=== PATIENT | male | born 1960 | race Two or more races ===

== ENCOUNTER 2023-01-26 15:07 | Emergency (ER) | payer SELFPAY ==
[~2023-01-26] VITALS: Ht 162.6 cm; Wt 74.0 kg
[2023-01-26 15:08] VITALS: TEMP 97.9
[2023-01-26] MEDS ORDERED: RAMI1CAP21 PO (15:26)
[2023-01-26] MEDS ORDERED: NITR2.5C10 PO (15:26)
[2023-01-26] MEDS ORDERED: CLOP75TA99 PO ×3 (15:26→19:51)
[2023-01-26] MEDS ORDERED: MONT10TA97 PO (15:26)
[2023-01-26] MEDS ORDERED: ROSU20TA61 PO ×2 (15:26→19:56)
[2023-01-26] MEDS ORDERED: BISO5TAB14 PO ×2 (15:26→19:50)
[2023-01-26] MEDS ORDERED: ASPIRIN 81MG CHEW TABLET PO ONE (16:10)
[2023-01-26] MEDS: NITROGLYCERIN 0.4MG SUBL TABLET SL PRN ×2 (16:17→16:31)
[2023-01-26 16:31] VITALS: BP 127/79
[2023-01-26 16:41] LABS: BASO # 0.1 10^3/uL (0.0-0.2); BASO % 0.7 % (0.0-1.0); EOS # 0.3 10^3/uL (0.0-0.5); EOS % 3.8 % (0.0-3.0); HEMATOCRIT 43.1 % (42.0-52.0); HEMOGLOBIN 13.9 g/dl (13.5-17.5); LYMPH # 2.5 10^3/uL (1.5-5.0); MEAN CORPUSCULAR HEMOGLOBIN 29.1 pg (27.0-33.0); MEAN CORPUSCULAR HGB CONC 32.3 g/dl (32.0-36.5); MEAN CORPUSCULAR VOLUME 90.4 fl (80.0-96.0); MONO # 0.6 10^3/uL (0.0-0.8); MONO % 7.9 % (2.0-8.0); NEUTROPHILS # 4.1 10^3/uL (1.5-8.5); NEUTROPHILS % 54.3 % (36.0-66.0); PLATELET COUNT, AUTOMATED 104 10^3/uL (150-450); RED BLOOD COUNT 4.77 10^6/uL (4.30-6.10); WHITE BLOOD COUNT 7.6 10^3/uL (4.0-10.0)
[2023-01-26] MEDS ORDERED: ALBU2.5V10 INH (16:41)
[2023-01-26 16:53] LABS: INR 1.14; PARTIAL THROMBOPLASTIN TIME 28.4 SECONDS (24.8-34.2); PROTHROMBIN TIME 14.3 SECONDS (12.5-14.5)
[2023-01-26 17:09] LABS: CK-MB VALUE MASS 1.8 NG/ML (<3.6)
[2023-01-26 17:11] LABS: CPK CREATINE PHOSPHOKINASE 118 U/L (46-171); MB/CK RELATIVE INDEX 1.52 (< OR =4)
[2023-01-26 17:12] LABS: ALBUMIN 3.6 G/DL (3.2-5.2); ALKALINE PHOSPHATASE 72 U/L (46-116); ALT/SGPT 12 U/L (7.0-40); AST/SGOT 16 U/L (<34); BILIRUBIN,DIRECT 0.2 MG/DL (<0.4); BILIRUBIN,TOTAL 0.4 MG/DL (0.3-1.2); BLOOD UREA NITROGEN 11 MG/DL (9-23); CALCIUM LEVEL 8.4 MG/DL (8.3-10.6); CARBON DIOXIDE LEVEL 29 MMOL/L (20-31); CHLORIDE LEVEL 105 MMOL/L (98-107); CREATININE FOR GFR 0.72 MG/DL (0.70-1.30); GLOMERULAR FILTRATION RATE > 60.0 (>49); GLUCOSE, FASTING 90 MG/DL (74-106); POTASSIUM SERUM 4.1 MMOL/L (3.5-5.1); SODIUM LEVEL 137 MMOL/L (136-145); TOTAL PROTEIN 6.7 G/DL (5.7-8.2)
[2023-01-26 17:13] LABS: THYROID STIMULATING HORMONE 0.956 uIU/ML (0.55-4.78)
[2023-01-26 17:14] LABS: FREE T4 1.08 NG/DL (0.89-1.76)
[2023-01-26] MEDS ORDERED: ISOVUE-370 76% 100ML VIAL As Ordered ONE (17:32)
[2023-01-26 18:12] LABS: CK-MB VALUE MASS 1.4 NG/ML (<3.6)
[2023-01-26 18:18] LABS: MB/CK RELATIVE INDEX 1.32 (< OR =4)
[2023-01-26 18:45] VITALS: BP 121/73
[2023-01-26 18:52] VITALS: O2SAT 98
[2023-01-26] MEDS ORDERED: ALBU2.5V10 NEB (19:47)
[2023-01-26] MEDS ORDERED: VENTAER INH (19:51)
[2023-01-26] MEDS ORDERED: SING5CHW23 PO (19:53)
[2023-01-26] MEDS ORDERED: NITR2.5C4 PO (19:54)
[2023-01-26] MEDS ORDERED: ALTA1CAP2 PO (19:55)
[2023-01-26] MEDS ORDERED: PROT1TAB2 PO (20:38)
== END 2023-01-26 20:47 | disposition home or self-care (01) ==
LOC: M ED 15:07
DX: R07.9 Chest pain, unspecified (principal); I25.10 Atherosclerotic heart disease of native coronary artery without angina pectoris; I10 Essential (primary) hypertension; E78.5 Hyperlipidemia, unspecified; J45.909 Unspecified asthma, uncomplicated; Z87.891 Personal history of nicotine dependence; Z79.899 Other long term (current) drug therapy
CPT/HCPCS: 71046; 71275; 80048; 80076; 82550; 82553; 84439; 84443; 84484; 85025; 85610; 85730; 93005; 93041; 94760; 99285; Q9967